=== PATIENT | male | born 1955 | race Two or more races ===

== ENCOUNTER 2022-01-11 14:02 | Emergency (ER) | payer MEDICAID ==
[~2022-01-11] VITALS: Ht 172.7 cm; Wt 79.4 kg
[2022-01-11] MEDS ORDERED: HYDROCODONE/APAP 5/325MG TABLET PO ONE (14:30)
[2022-01-11] MEDS ORDERED: HYDROCODONE/APAP 5/325MG TABLET ONE (14:57)
[2022-01-11] MEDS ORDERED: IBUP-1957 PO (15:38)
[2022-01-11] MEDS ORDERED: HYDR-4209 PO (15:38)
[2022-01-11 15:54] VITALS: BP 154/94
== END 2022-01-11 15:55 | disposition home or self-care (01) ==
LOC: ER 14:07
DX: S20.212A Contusion of left front wall of thorax, initial encounter (principal); I10 Essential (primary) hypertension; Z79.899 Other long term (current) drug therapy; W18.30XA Fall on same level, unspecified, initial encounter; Y93.89 Activity, other specified; Y92.89 Other specified places as the place of occurrence of the external cause; Y99.8 Other external cause status
CPT/HCPCS: 71100-TC